=== PATIENT | female | born 1990 | race Caucasian/White ===

== ENCOUNTER 2018-02-26 16:34 | Emergency (ER) | payer MEDICAID ==
[~2018-02-26] VITALS: Ht 165.1 cm; Wt 120.0 kg
[2018-02-26] MEDS ORDERED: ACETAMINOPHEN 325MG TABLET PO PRN (17:45)
[2018-02-26 17:50] LABS: CLARITY URINE CLEAR (CLEAR); COLOR URINE YELLOW (YELLOW); KETONES URINE 1+ (NEGATIVE); LEUKOCYTE ESTERASE URINE 1+ (NEGATIVE); NITRITE URINE NEGATIVE (NEGATIVE); OCCULT BLOOD URINE NEGATIVE (NEGATIVE); PROTEIN URINE NEGATIVE (NEGATIVE); SPECIFIC GRAVITY URINE 1.014 (1.005-1.030)
[2018-02-26 19:16] VITALS: BP 100/48
[2018-02-26 20:39] LABS: BASOPHILS % 0.4 % (0.0-2.0); EOSINOPHILS % 1.1 % (0.0-5.0); HEMATOCRIT. 34.4 % (36.0-48.0); HEMOGLOBIN. 11.7 g/dL (12.0-16.0); LYMPHOCYTES % 26.3 % (20.0-50.0); MEAN CORPUSCULAR HEMOGLOBIN 28.8 pg (28.0-32.0); MEAN CORPUSCULAR VOLUME 84.9 fL (81.0-99.0); MEAN PLATELET VOLUME 8.9 fl (7.4-10.4); MONOCYTES % 5.2 % (2.0-8.0); PLATELET 197 x1000/uL (130-400); RED BLOOD CELL COUNT 4.05 mill/uL (4.2-5.4); RED CELL DISTRIBUTION WIDTH 14.7 % (11.6-14.6)
[2018-02-26 20:43] LABS: CHLORIDE 107 mEq/L (98-107)
[2018-02-26 20:44] LABS: PROTHROMBIN TIME 10.1 sec (9.1-11.1)
[2018-02-26 21:07] LABS: B-HCG QUANTITATIVE 17512 mIU/mL (<3)
== END 2018-02-26 21:54 | disposition home or self-care (01) ==
LOC: ER 18:10
DX: O26.892 Other specified pregnancy related conditions, second trimester (principal); O99.342 Other mental disorders complicating pregnancy, second trimester; Z3A.20 20 weeks gestation of pregnancy; F41.9 Anxiety disorder, unspecified; M54.5 Low back pain; R10.30 Lower abdominal pain, unspecified
CPT/HCPCS: 36415; 76805; 81025; 84702; 99285

== ENCOUNTER 2018-07-05 06:05 | Inpatient (IN) | payer MEDICAID ==
[~2018-07-05] VITALS: Ht 170.2 cm; Wt 158.8 kg
[2018-07-05] MEDS ORDERED: PNV1TABL50 MT (06:31)
[2018-07-05] MEDS ORDERED: DEXT 5%/LR + PITOCIN 20UNITS/L 1,000 ML IV SCH (06:32)
[2018-07-05] MEDS ORDERED: METHYLERGONOVINE MALEATE 0.2 MG/ML IM PRN (06:45)
[2018-07-05] MEDS ORDERED: NALOXONE HCL 0.4 MG/ML 1ML VIAL IM PRN (06:45)
[2018-07-05] MEDS ORDERED: CARBOPROST TROMETHAMINE 250 MCG/ML AMPUL IM PRN (06:45)
[2018-07-05 07:11] LABS: CLARITY URINE CLOUDY (CLEAR); COLOR URINE YELLOW (YELLOW); KETONES URINE NEGATIVE (NEGATIVE); LEUKOCYTE ESTERASE URINE 3+ (NEGATIVE); NITRITE URINE POSITIVE (NEGATIVE); OCCULT BLOOD URINE TRACE (NEGATIVE); PROTEIN URINE NEGATIVE (NEGATIVE); SPECIFIC GRAVITY URINE 1.012 (1.005-1.030); UROBILINOGEN URINE 0.2 E.U./dL (0.2-1.0)
[2018-07-05] MEDS: LACTATED RINGERS 1,000 ML IV SCH ×2 (07:12→08:11)
[2018-07-05] MEDS ORDERED: SODIUM CHLORIDE 0.9% 10ML VIAL ONE (07:12)
[2018-07-05] MEDS ORDERED: EPHEDRINE SULFATE 50MG/ML VIAL ONE (07:13)
[2018-07-05] MEDS ORDERED: CEFAZOLIN SODIUM 1000MG/VIAL ONE (07:13)
[2018-07-05] MEDS ORDERED: OXYTOCIN 10 UNITS/ML 1ML ONE (07:13)
[2018-07-05 07:16] LABS: PARTIAL THROMBOPLASTIN TIME 29.5 sec (23.4-31.0); PROTHROMBIN TIME 9.6 sec (9.1-11.1)
[2018-07-05] MEDS ORDERED: ONDANSETRON HCL 4MG/2ML INJ ONE (07:17)
[2018-07-05] MEDS ORDERED: PHENYLEPHRINE HCL 10 MG/ML 1ML (IV VIAL) IV ONE (07:17)
[2018-07-05] MEDS ORDERED: MORPHINE SULFATE/PF 1MG/ML 10ML AMP ONE (07:24)
[2018-07-05] MEDS ORDERED: BUPIVACAINE HCL/DEXTROSE/PF 0.75% 2ML AMP INJ ONE (07:24)
[2018-07-05 07:26] LABS: BASOPHILS % 0.2 % (0.0-2.0); EOSINOPHILS % 0.9 % (0.0-5.0); HEMATOCRIT. 35.7 % (36.0-48.0); LYMPHOCYTES % 28.3 % (20.0-50.0); MEAN CORPUSCULAR HEMOGLOBIN 27.6 pg (28.0-32.0); MEAN CORPUSCULAR VOLUME 82.1 fL (81.0-99.0); MEAN PLATELET VOLUME 8.8 fl (7.4-10.4); MONOCYTES % 5.1 % (2.0-8.0); NEUTROPHILS % 65.5 % (40.0-76.0); PLATELET 236 x1000/uL (130-400); RED BLOOD CELL COUNT 4.35 mill/uL (4.2-5.4); RED CELL DISTRIBUTION WIDTH 14.9 % (11.6-14.6)
[2018-07-05 07:42] LABS: *AMPHETAMINES SCREEN URINE NEGATIVE (NEGATIVE)
[2018-07-05 07:43] LABS: *BARBITURATES SCREEN URINE NEGATIVE (NEGATIVE); *BENZODIAZEPINES SCREEN URINE NEGATIVE (NEGATIVE); *COCAINE SCREEN URINE NEGATIVE (NEGATIVE); METHADONE URINE SCREEN NEGATIVE (NEGATIVE); OPIATES URINE SCREEN NEGATIVE (NEGATIVE)
[2018-07-05 07:44] LABS: CANNABINOID URINE SCREEN NEGATIVE (NEGATIVE); PHENCYCLIDINE URINE SCREEN NEGATIVE (NEGATIVE)
[2018-07-05] MEDS ORDERED: CITRIC ACID/SODIUM CITRATE SOLN 30ML UDC PO SCH (07:45)
[2018-07-05] MEDS ORDERED: FENTANYL CITRATE/PF 50MCG/ML 2ML VIAL ONE (09:31)
[2018-07-05] MEDS ORDERED: RHO(D) IMMUNE GLOBULIN 300 MCG/SYR IM PRN (11:15)
[2018-07-05] MEDS ORDERED: BISACODYL 10MG SUPP PR PRN (11:15)
[2018-07-05] MEDS ORDERED: LANOLIN OINT 0.25 GM TUBE TOP PRN (11:15)
[2018-07-05] MEDS ORDERED: ONDANSETRON HCL 4MG/2ML INJ IV PRN ×2 (11:15→16:45)
[2018-07-05] MEDS ORDERED: HYDROCODONE/ACETAMINOPHEN 5/325MG TABLET PO PRN (11:15)
[2018-07-05 13:29] LABS: HEPATITIS B SURFACE ANTIGEN NEGATIVE
[2018-07-05 14:00] VITALS: BP 97/47
[2018-07-05 14:31] VITALS: BP 102/46
[2018-07-05] MEDS ORDERED: METOCLOPRAMIDE HCL 10MG/2ML VIAL IV PRN (16:45)
[2018-07-05] MEDS ORDERED: DIPHENHYDRAMINE 50MG/ML VIAL IV PRN (16:45)
[2018-07-05] MEDS ORDERED: MEPERIDINE HCL/PF 25MG/ML CPJ IV PRN (16:45)
[2018-07-05 19:30] VITALS: BP 115/63
[2018-07-05] MEDS: DEXT 5%/LR + PITOCIN 20UNITS/L 1,000 ML IV SCH (21:20)
[2018-07-05] MEDS: KETOROLAC 30MG/ML VIAL IV PRN (21:54)
[2018-07-06 04:00] VITALS: BP 108/54
[2018-07-06] MEDS: DEXT 5%/LR + PITOCIN 20UNITS/L 1,000 ML IV SCH (05:24)
[2018-07-06] MEDS: KETOROLAC 30MG/ML VIAL IV PRN (05:41)
[2018-07-06 07:41] LABS: BASOPHILS % 0.2 % (0.0-2.0); EOSINOPHILS % 1.2 % (0.0-5.0); HEMATOCRIT. 30.3 % (36.0-48.0); HEMOGLOBIN. 9.9 g/dL (12.0-16.0); LYMPHOCYTES % 16.9 % (20.0-50.0); MEAN CORPUSCULAR HEMOGLOBIN 27.4 pg (28.0-32.0); MEAN CORPUSCULAR VOLUME 83.6 fL (81.0-99.0); MEAN PLATELET VOLUME 8.6 fl (7.4-10.4); MONOCYTES % 5.8 % (2.0-8.0); NEUTROPHILS % 75.9 % (40.0-76.0); PLATELET 201 x1000/uL (130-400); RED BLOOD CELL COUNT 3.62 mill/uL (4.2-5.4); RED CELL DISTRIBUTION WIDTH 14.8 % (11.6-14.6)
[2018-07-06 09:00] VITALS: BP 112/68
[2018-07-06] MEDS: PRENATAL VIT/FE FUMARATE/FA TABLET PO SCH (09:00)
[2018-07-06] MEDS: IBUPROFEN 400MG TABLET PO PRN ×2 (12:36→18:49)
[2018-07-06 17:00] VITALS: BP 121/67
[2018-07-06 20:00] VITALS: BP 114/57
[2018-07-06] MEDS: DOCUSATE SODIUM 100MG CAPSULE PO SCH (20:53)
[2018-07-07] MEDS: IBUPROFEN 400MG TABLET PO PRN ×2 (03:25→13:44)
[2018-07-07 04:00] VITALS: BP 99/47
[2018-07-07] MEDS: PRENATAL VIT/FE FUMARATE/FA TABLET PO SCH (09:00)
[2018-07-07 14:00] VITALS: BP 133/81
[2018-07-07] MEDS ORDERED: MEDROXYPROGESTERONE ACETATE 150MG/ML VIAL IM NR (17:00)
[2018-07-07 19:15] VITALS: BP 141/83
[2018-07-07] MEDS: HYDROCODONE/ACETAMINOPHEN 5/325MG TABLET PO PRN (19:34)
[2018-07-07] MEDS: DOCUSATE SODIUM 100MG CAPSULE PO SCH (20:32)
[2018-07-07 23:30] VITALS: BP 112/51
[2018-07-08] MEDS: HYDROCODONE/ACETAMINOPHEN 5/325MG TABLET PO PRN ×2 (00:47→09:05)
[2018-07-08 03:51] VITALS: BP 110/60
[2018-07-08 07:45] VITALS: BP 109/61
[2018-07-08] MEDS: PRENATAL VIT/FE FUMARATE/FA TABLET PO SCH (09:04)
== END 2018-07-08 11:00 | disposition home or self-care (01) | DRG 540 ==
LOC: OBSVTOIN 06:05 → 8 EST LDRP 06:05 → 8EST 14:14
PROVIDERS: ADMIT Obstetrics & Gynecology; ATTEND Obstetrics & Gynecology
PROC: 10D00Z1 Extraction of Products of Conception, Low, Open Approach (ICD-10-PCS; principal; 2018-07-05)
DX: O34.211 Maternal care for low transverse scar from previous cesarean delivery (principal); E66.01 Morbid (severe) obesity due to excess calories; O99.214 Obesity complicating childbirth; D64.9 Anemia, unspecified; O90.81 Anemia of the puerperium; O99.834 Other infection carrier state complicating childbirth; Z3A.39 39 weeks gestation of pregnancy; Z37.0 Single live birth; Z22.8 Carrier of other infectious diseases
CPT/HCPCS: 36415; 80305; 86592; 86703; 86762; 86850; 86900; 86920; 87340; 88307; 99281; J0690; J1050; J1885; J2274; J2370; J2405; J2590; J3010; J3490; J7120; A4315